=== PATIENT | male | born 1955 | race Caucasian/White ===

== ENCOUNTER 2016-08-08 21:36 | Emergency (ER) | payer MEDICAID ==
[~2016-08-08] VITALS: Ht 175.3 cm; Wt 90.7 kg
[2016-08-08] MEDS ORDERED: DIATR MEGLU/DIATRIZOATE SODIUM 30 ML BOTTLE (GASTROGRAPHIN) ONE ×2 (21:58→22:33)
[2016-08-09 00:01] VITALS: BP 116/82
== END 2016-08-08 23:15 | disposition home or self-care (01) ==
LOC: ER 21:38
DX: Z43.1 Encounter for attention to gastrostomy (principal); G93.40 Encephalopathy, unspecified; I10 Essential (primary) hypertension
CPT/HCPCS: 43760; 74000; 99285; A4606; Q9963 ×2; Z7610